=== PATIENT | female | born 2000 | race Two or more races ===

== ENCOUNTER 2024-05-28 11:01 | Observation (INO) | payer MEDICAID, SELFPAY ==
--- NOTE | 2024-05-28 11:13 | ESHP_ITS ---
RE: CHARO CANELA : 2000 DATE OF ADMISSION: 05/28/2024 HISTORY OF PRESENT ILLNESS: This is a 23-year-old 1, para 0 with a due date of 06/21/2023 with intrauterine at 36 weeks and 5 days who called the office and complained of headache and noticed her home blood pressure was 150/111 mmHg. The patient is a known preeclamptic with her most recent 24-hour urine collection on 05/26/2023 showing 671 mg of protein over 24 hours. Her care has also been complicated by a platelet count, which appears fictitiously low due to platelet clumping. She has a tension type headache. She denies any change in vision or right upper quadrant pain. She reports normal movement. She denies any leaking or bleeding. ALLERGIES: NO KNOWN DRUG ALLERGIES. MEDICATIONS: multivitamin 1 tablet p.o. daily. PAST MEDICAL HISTORY: Appendicitis, thrombocytopenia, fictitious due to platelet clumping. FAMILY HISTORY: Denies. REVIEW OF SYSTEMS: She denies any chest pain, palpitations, cough, fever, shortness of breath, or lower extremity pain. PHYSICAL EXAMINATION: VITAL SIGNS: Blood pressure 150/111 mmHg, heart rate 88, respirations 18, temperature 90.2. HEENT: Oropharynx and sclerae are clear. LUNGS: Clear to auscultation bilaterally. HEART: Regular rate and rhythm. ABDOMEN: Gravid consistent with estimated weight 6 pounds 9 ounces. EXTREMITIES: Nontender. SKIN: Equals, rashes, or lesion. NEUROLOGIC: No focal deficits. ASSESSMENT: Intrauterine at 36 weeks and 5 days. Preeclampsia rule out with severe features . PLAN: PI Labs. NST. Betamethasone. DT: 10:35:08 TT: 11:12:00 Ref: [id number] - TID: [id number] [facility]
[2024-05-28 11:37] LABS: Collection Type, Urine Clean Catch
[2024-05-28 11:46] LABS: Basophils % (Auto) 0 % (0-2.5); Eosinophils # (Auto) 0.1 Thou/mm3 (0.0-0.5); Eosinophils % (Auto) 1 % (0-10); Hematocrit 38.4 % (36.0-46.0); Hemoglobin 13.7 g/dL (12.0-16.0); Immature Granulocytes % (Auto) 1 % (0-0); Immature Granulocytes Auto 0.16 Thou/mm3 (0.00-0.00); Lymphocytes # (Auto) 2.5 Thou/mm3 (1.0-4.8); Lymphocytes % (Auto) 20 % (10-50); Mean Corpuscular HGB Conc 35.7 g/dl (31.0-37.0); Mean Corpuscular Hemoglobin 29.7 pg (25.0-35.0); Mean Corpuscular Volume 83 fL (80-100); Monocytes # (Auto) 0.8 Thou/mm3 (0.0-0.8); Monocytes % (Auto) 6 % (0-12); Neutrophils # (Auto) 8.9 Thou/mm3 (1.8-7.7); Neutrophils % (Auto) 71 % (37-80); Nucleated Red Blood Cell % 0 /100 WBC (0); RDW Standard Deviation 42.6 fL (36.4-46.3); Red Blood Count 4.61 Miln/mm3 (4.00-5.20); White Blood Count 12.4 Thou/mm3 (3.6-11.0)
[2024-05-28 11:54] VITALS: BP 130/77; PULSE 70
[2024-05-28 11:59] VITALS: BMI 36.2
[2024-05-28 12:04] LABS: Platelet Count 104 Thou/mm3 (140-440)
[2024-05-28 12:11] LABS: Alanine Aminotransferase 10 U/L (10-49); Albumin, Serum 3.7 gm/dL (3.5-5.0); Albumin/Globulin Ratio 1.5 (1.2-2.2); Alkaline Phosphatase 132 U/L (46-116); Anion Gap 9 (7-16); Aspartate Amino Transferase 15 U/L (0-34); BUN/Creatinine Ratio 15 Ratio (12-20); Bilirubin,Total 0.3 mg/dL (0.3-1.2); Blood Urea Nitrogen 9 mg/dL (9-23); Calcium (Corrected) 9.2 mg/dL (8.5-10.1); Carbon Dioxide 18.8 mMol/L (20.0-31.0); Chloride 108 mMol/L (98-107); Creatinine (Component) 0.6 mg/dL (0.6-1.3); Estimated Creatinine Clearance 168.3 mL/min (>60); Globulin 2.4 gm/dL (2.3-3.5); Glucose 72 mg/dL (74-106); LDH (Lactate Dehydrogenase) 182 U/L (120-246); Osmolality,Calculated 269 (275-295); Potassium 4.4 mMol/L (3.4-5.1); Sodium 136 mMol/L (136-145); Total Protein 6.1 gm/dL (5.7-8.2); Uric Acid 6.3 mg/dL (3.1-7.8); eGFR > 60 See Note
[2024-05-28 12:17] VITALS: BP 129/79; PULSE 67
[2024-05-28 12:27] LABS: Bacteria,Urine Rare; Bilirubin,Urine Negative (Negative); Blood,Urine Negative (Negative); Clarity,Urine Clear (Clear/Hazy); Color,Urine Lt-Yellow (Lt Yel-Yel); Glucose, Urine Negative (Negative); Ketones,Urine Negative (Negative); Leukocyte Esterase,Urine Negative (Negative); Nitrite,Urine Negative (Negative); PH,Urine 6.5 (5.0-7.0); Protein,Urine 2+ (Neg - Trace); RBC,Urine 1 /hpf (0-3); Specific Gravity,Urine 1.016 (1.001-1.035); Squamous Epithelial Cell,Urine 16 /hpf (0-5); Urobilinogen,Urine Negative mg/dL (0.0-1.0); WBC,Urine 1 /hpf (0-5)
[2024-05-28 12:32] LABS: Fibrinogen 490 mg/dL (175-375); INR 0.9 (0.9-1.3); Partial Thromboplastin Time 26.9 Seconds (22.0-36.0); Prothrombin Time 9.8 Seconds (9.0-12.2)
[2024-05-28 12:33] VITALS: BP 146/78; PULSE 63
[2024-05-28 12:47] VITALS: BP 134/81; PULSE 64
[2024-05-28 13:02] VITALS: BP 126/78; PULSE 66
[2024-05-28] MEDS: BETAMET ACET/BETAMET NA PH (Celestone) 6 MG/ML VIAL 12 MG IM (13:18)
[2024-05-28 13:38] VITALS: BP 130/77; PULSE 70; RESP 18; TEMP 37.1
== END 2024-05-28 13:20 | disposition home or self-care (01) ==
PROVIDERS: Admitting Provider Specialist; Visit Provider Specialist
DX: O16.3 Unspecified maternal hypertension, third trimester (principal); Z3A.36 36 weeks gestation of pregnancy
CPT/HCPCS: 36415; 59025; 59899; 80053; 81001; 83615; 84550; 85025; 85049; 85384; 85610; 85730; 96372; J0702

== ENCOUNTER 2024-05-29 13:44 | Outpatient (CLI) | payer MEDICAID, SELFPAY ==
[2024-05-29 13:57] VITALS: BP 133/85; PULSE 89
[2024-05-29 14:01] VITALS: BMI 36.9
[2024-05-29 14:07] VITALS: BP 133/85; PULSE 89; RESP 18; RESP 99; TEMP 36.7
[2024-05-29 14:11] VITALS: BP 122/63; PULSE 86
[2024-05-29] MEDS: BETAMET ACET/BETAMET NA PH (Celestone) 6 MG/ML VIAL 12 MG IM (14:12)
== END 2024-05-29 14:15 | disposition home or self-care (01) ==
LOC: S4S1 13:47 → S4SX 13:48
PROVIDERS: Referring Provider Specialist; Visit Provider Specialist
DX: Z36.9 Encounter for antenatal screening, unspecified (principal); Z34.03 Encounter for supervision of normal first pregnancy, third trimester; Z3A.36 36 weeks gestation of pregnancy
CPT/HCPCS: 59025; 96372; J0702

== ENCOUNTER 2024-05-31 23:01 | Inpatient (IN) | payer MEDICAID, SELFPAY ==
[2024-05-31] VITALS (9 sets, daily range): BP systolic 144–189; BP diastolic 81–116; PULSE 48–62; O2SAT 97–99
--- NOTE | 2024-05-31 23:34 | ESHP_ITS ---
Documentation for date of: 05/31/24 OB Labor/Induct. HPI History of Present Illness History of present illness: H and P dictated on STAT line #9 in [facility] [id number] Meds Home Medications and Allergies Allergies Allergy/AdvReac Type Severity Reaction Status Date / Time No Known Allergies Allergy Verified 05/31/24 23:12 OB Exam Physical Exam Vital signs: Pulse BP Pulse Ox 50 L 165/81 H 98 05/31/24 23:19 05/31/24 23:19 05/31/24 23:29
[2024-05-31] MEDS: Magnesium Sulfate 4 GM Ivpb 4 GM/50 ML BAG IV (23:50)
[2024-06-01] VITALS (128 sets, daily range): BP systolic 126–191; BP diastolic 68–109; PULSE 48–103; RESP 14–98; TEMP 36.6–36.9; O2SAT 83–100; BMI 37.3
--- NOTE | 2024-06-01 | XR_ITS ---
Examination: Complete OB ultrasound greater than 14 weeks Date and time of exam: June 01, 2024 0026 hrs. Indications: Pelvic contractions beginning today Findings: Viable intrauterine single fetus with single amniotic sac presentation cephalic Placenta anterior grade 3 Umbilical cord insertion seen Amniotic fluid index 11.6 cm Ovaries obscured by bowel gas. Composite estimated gestational age based on BPD, head circumference, abdominal circumference, femur length is 37 weeks 2 days Estimated weight 3174.9 g Moderate bilateral hydroceles. Survey of intracranial anatomy, spinal anatomy, four-chamber heart performed with no abnormalities identified. Impression: Viable intrauterine gestation cephalic presentation. Estimated gestational age 37 weeks 2 days Estimated weight 3174.9 g
[2024-06-01 00:08] LABS: Collection Type, Urine Clean Catch
[2024-06-01 00:31] LABS: Basophils # (Auto) 0.1 Thou/mm3 (0.0-0.2); Basophils % (Auto) 0 % (0-2.5); Eosinophils # (Auto) 0.1 Thou/mm3 (0.0-0.5); Eosinophils % (Auto) 0 % (0-10); Hematocrit 37.4 % (36.0-46.0); Hemoglobin 13.3 g/dL (12.0-16.0); Immature Granulocytes % (Auto) 4 % (0-0); Immature Granulocytes Auto 0.66 Thou/mm3 (0.00-0.00); Lymphocytes % (Auto) 17 % (10-50); Mean Corpuscular HGB Conc 35.6 g/dl (31.0-37.0); Mean Corpuscular Hemoglobin 29.2 pg (25.0-35.0); Mean Corpuscular Volume 82 fL (80-100); Monocytes # (Auto) 1.7 Thou/mm3 (0.0-0.8); Monocytes % (Auto) 9 % (0-12); Neutrophils # (Auto) 12.5 Thou/mm3 (1.8-7.7); Neutrophils % (Auto) 70 % (37-80); Nucleated Red Blood Cell # 0.03 Thou/mm3 (0.00-0.00); Nucleated Red Blood Cell % 0 /100 WBC (0); Platelet Count 104 Thou/mm3 (140-440); RDW Standard Deviation 41.9 fL (36.4-46.3); Red Blood Count 4.56 Miln/mm3 (4.00-5.20)
[2024-06-01] MEDS: MAGNESIUM SULF 20 GM IVPB 20 GM/500 ML BAG IV ×2 (00:34→13:22)
[2024-06-01 00:43] LABS: Alanine Aminotransferase 38 U/L (10-49); Albumin, Serum 3.7 gm/dL (3.5-5.0); Albumin/Globulin Ratio 1.7 (1.2-2.2); Alkaline Phosphatase 126 U/L (46-116); Anion Gap 8 (7-16); Aspartate Amino Transferase 53 U/L (0-34); BUN/Creatinine Ratio 22 Ratio (12-20); Bilirubin,Total 0.3 mg/dL (0.3-1.2); Blood Urea Nitrogen 13 mg/dL (9-23); Calcium 9.2 mg/dL (8.3-10.6); Calcium (Corrected) 9.4 mg/dL (8.5-10.1); Carbon Dioxide 22.3 mMol/L (20.0-31.0); Chloride 110 mMol/L (98-107); Creatinine (Component) 0.6 mg/dL (0.6-1.3); Globulin 2.2 gm/dL (2.3-3.5); Glucose 82 mg/dL (74-106); Magnesium 1.8 mg/dL (1.6-2.6); Osmolality,Calculated 278 (275-295); Potassium 3.7 mMol/L (3.4-5.1); Sodium 140 mMol/L (136-145); Total Protein 5.9 gm/dL (5.7-8.2); Uric Acid 7.1 mg/dL (3.1-7.8); eGFR > 60 See Note
[2024-06-01] MEDS: hydrALAZINE INJ 20 MG/ML VIAL (00:52)
[2024-06-01 00:53] LABS: Fibrinogen 386 mg/dL (175-375); INR 0.9 (0.9-1.3); Partial Thromboplastin Time 24.1 Seconds (22.0-36.0); Prothrombin Time 9.7 Seconds (9.0-12.2)
[2024-06-01 00:59] LABS: Bacteria,Urine Rare; Bilirubin,Urine Negative (Negative); Blood,Urine 1+ (Negative); Clarity,Urine Clear (Clear/Hazy); Color,Urine Yellow (Lt Yel-Yel); Glucose, Urine Negative (Negative); Ketones,Urine Negative (Negative); Leukocyte Esterase,Urine Negative (Negative); Nitrite,Urine Negative (Negative); Protein,Urine 3+ (Neg - Trace); RBC,Urine 6 /hpf (0-3); Specific Gravity,Urine 1.036 (1.001-1.035); Squamous Epithelial Cell,Urine 10 /hpf (0-5); Urobilinogen,Urine Negative mg/dL (0.0-1.0); WBC,Urine 15 /hpf (0-5)
[2024-06-01 01:00] LABS: Syphilis Nonreactive (Nonreactive)
--- NOTE | 2024-06-01 01:55 | PRELIM_ITS ---
Obstetric ultrasound with Doppler. June 01, 2024 at 0026 hours Clinical history: Unable to determine presentation Comparison: None. Findings: There is a gravid uterus with a live fetus in cephalic presentation of mean gestational age 37 weeks and 2 days (by biometry). cardiac activity is present at a heart rate of 120 beats per minute. The placenta is anterior in location, grade 3. There is no evidence of placenta previa or retroplacental hemorrhage. Amniotic fluid is adequate (DOMI = 11.6 cm). Estimated weight is 3175 grams+/- 470 grams. The ovaries were not visualized. Hydrocele noted in the scrotum. Normalities detected by Doppler. Impression: Gravid uterus with a single live fetus in cephalic presentation of mean gestational age 37 weeks 2 days. Hydrocele noted in the scrotum. Obstetric consult should be considered. Report Electronically Signed By: Eligio Castañeda 06/01/2024 1:55:02 AM [EST]
--- NOTE | 2024-06-01 05:21 | PD.LDPN ---
Documentation for date of: 06/01/24 OB Labor Progress Note Pain Control Comments: Epidural Pelvic Exam Dilation (cm): closed Effacement (%): long station: -3 Amniotic membrane status: Intact Contractions Contraction frequency: irregular Status status: Category l Assessment and Plan Comments: Preeclampsia with severe features Remote from delivery due to unripe cervix Delivery Informed consent obtained. The patient was made aware of the risks, complications, alternatives and benefits of the proposed procedure and she agrees.
[2024-06-01] MEDS: CITRIC ACID/SODIUM CITR 15 ML UDC (BICITRA) 30 ML PO (05:48)
[2024-06-01] MEDS: ceFAZolin/D5W 2 GM IV 2 GM/100 ML BAG IV (05:49)
[2024-06-01] MEDS: FAMOTIDINE INJ 10 MG/ML VIAL 2 ML 20 MG IV (05:49)
--- NOTE | 2024-06-01 07:38 | PD.LDDELS ---
Data (Ramachandran) Data : 1 Para: 0 Term: 0 : 0 : 0 Delivery Data (Ramachandran) Labor Data ROM Date: 06/01/24 ROM Time: 06:21 Rupture Type: AROM Delivery Data EDC: 06/21/24 EDC calculated by:: LMP/early US confirmation Labor Onset Stage 1 Date: 06/01/24 Labor Onset Stage 1 Time: 06:22 Labor Onset Stage 2 Date: 06/01/24 Labor Onset Stage 2 Time: 06:22 Delivery Date: 06/01/24 Delivery Time: 06:22 Gestational age (weeks): 37 Gestational age (days): 2 Placenta Delivery Date: 06/01/24 Placenta Delivery Time: 06:23 Delivered by: Bjorn Gomes Delivery nurse: Inder Cota Other staff at delivery: Nursery Nurse Other staff at delivery: Heather Jones Delivery Method Delivery: Delivery Type: Primary Presentation: Vertex Position: OA Anesthesia Type Primary Anesthesia: Epidural Placenta Placenta Delivery: Manual EBL Estimated blood loss (ml): 800 Additional Procedures Mity vac vacuum assisted delivery Complications Complications: None Data (Ramachandran) Data Infant Gender: Female Infant Weight Grams: 3135 1 Minute Total: 9 5 Minute Total: 9
--- NOTE | 2024-06-01 07:43 | ESDS_ITS ---
DS: Providers Provider Date of admission: 05/31/24 23:24 Primary care physician: Physician No Primary/Family Admitting Provider: Bjorn Gomes MD Attending Provider on Admission: Bjorn Gomes MD Attending Provider on DC: Bjorn Gomes MD Discharging Provider: Bjorn Gomes MD DS: Diagnosis Discharge Diagnosis (1) Preeclampsia, severe: Status: Acute (2) delivery delivered: Status: Acute (3) HELLP (hemolytic anemia/elev liver enzymes/low platelets in ): Status: Acute (4) Transfusion of platelets during current hospitalization: Status: Acute Problem List Completed Was Problem List Reviewed/Reconciled?: Yes Summary/Hosp Course Brief History: H and P dictated on STAT line #9 in [facility] [id number] Peripartum Data Procedures: Procedures Operation Date: 06/01/24 06:15 Actual Procedure Side Surgeon p in OB Not Applicable Bjorn Gomes MD Time Spent with Patient Time attestation: Total time spent providing and/or coordinating discharge services: Exam Vital Signs Temp Pulse Resp BP Pulse Ox O2 Del Method 97.9 F 86 18 157/109 H 98 Room Air 06/01/24 07:11 06/01/24 07:15 06/01/24 07:30 06/01/24 07:30 06/01/24 07:30 06/01/24 07:30 Discharge Plan Plan Patient Disposition: HOME (Self Care) Patient condition on transfer: Stable Prescriptions/Referrals Prescriptions/Med Rec: New hydrocodone-acetaminophen 5-325 mg tablet 1 tab PO Q6H MDD 4 PRN (Reason: pain) Qty: 20 0RF labetalol 200 mg tablet 200 mg PO BID Qty: 60 1RF Referrals: No Primary/Family,Physician [Primary Care Provider] - Patient/Caregiver Discharge Instructions Discharge Activity: activity as tolerated Other Discharge Activity Instructions:: Follow up office 1 week. Check BP every 12 hours and take Labetalol if systolic 140 or greater or diastolic 90 or greater. Education Materials: C Section Dc Print Language: [place] Stand Alone Forms: Sindi Award Info., Patient Portal Info Letter Discharge Order Discharge Orders: Discharge (Routine); Ordered 06/03/24 Ordered By: Bjorn Gomes Planned Discharge Date 06/03/24
[2024-06-01] MEDS: OXYTOCIN in NS 20 units 20 UNIT/1,000 ML BAG 125 UNIT IV ×2 (08:54→17:18)
[2024-06-01] MEDS: KETOROLAC INJ 30 MG/ML VIAL IVP ×3 (08:54→21:08)
--- NOTE | 2024-06-01 09:10 | ESOP_ITS ---
RE: CHARO CANELA : 2000 DATE OF OPERATION: 06/01/2024 PREOPERATIVE DIAGNOSES: 1. Intrauterine at 37 weeks and 1 day. 2. Preeclampsia with severe features; cervix is long and closed, not a candidate for prolonged induction of labor. POSTOPERATIVE DIAGNOSES: 1. Intrauterine at 37 weeks and 1 day. 2. Preeclampsia with severe features; cervix is long and closed, not a candidate for prolonged induction of labor. PROCEDURE PERFORMED: Primary low transverse section via Pfannenstiel skin incision. SURGEON: Bjorn Gomes DO SIGNAL INSPECTOR: JADEN March ANESTHESIA: Epidural. ANESTHESIOLOGIST: Gaston Renee CRNA ESTIMATED BLOOD LOSS: 800 mL COMPLICATIONS: None. COUNTS: Correct. PATHOLOGY: None. FINDINGS: A live female infant, cephalic presentation, clear amniotic fluid. Apgars 9 and 9, weight 3135 grams. Normal-appearing uterus, ovaries, and fallopian tubes. DESCRIPTION OF PROCEDURE: After proper informed consent was obtained and the patient was made aware of the risks, complications, alternatives, and benefits of the proposed procedure, she went to the operating room where epidural anesthesia was found to be adequate. She was prepped and draped in the usual sterile fashion. Timeout was performed. A Pfannenstiel skin incision was made with the scalpel carried through to the underlying layer of fascia with the Bovie. The fascia was nicked in the midline and incision extended bilaterally with the Bovie. The inferior aspect of the fascial incision was grasped with Ruth clamps and elevated. The underlying rectus muscles were dissected off with the Bovie. The rectus muscles were in the midline. The peritoneum was identified between two Camp clamps and entered sharply with the Metzenbaum scissors. The incision was extended superiorly and inferiorly with good visualization of the bladder. The bladder blade was then inserted. Vesicouterine peritoneum was incised transversely. The bladder flap was created digitally. Bladder blades were reinserted. The low uterine segment was incised in transverse fashion with a scalpel. The incision was extended bilaterally digitally. The infant's head was delivered. The mouth and nose were suctioned with bulb suction. Shoulder and body were delivered atraumatically. The cord was clamped and cut. The was sent off to the waiting pediatric staff. Cord blood and gases were sent. The placenta was then removed manually. The uterus was exteriorized and cleared of all clots and debris and the uterine incision was repaired with #1-0 chromic catgut suture in a running interlocking fashion. The second layer of the same suture was used to imbricate the first layer and obtain excellent hemostasis. The vesicouterine peritoneum was closed with 0 chromic catgut suture in a running fashion. The muscle was closed with a 0 chromic catgut suture in a running fashion. The fascia was closed with 0 Vicryl beginning at each angle and ending in the center in a running fashion. Subcutaneous tissue was irrigated with normal saline solution and found to be hemostatic, closed with 2-0 chromic catgut suture in a running fashion. The skin was closed with 4-0 Monocryl. Dermabond Prineo dressing was applied. Sterile pressure dressing was applied. She tolerated the procedure well. All counts were correct. I discussed with the patient, the nature of her condition, the intraoperative findings, and expectations for recovery. All questions were answered. DT: 07:41:41 TT: 09:08:00 Ref: [id number] - TID: [id number]
[2024-06-01] MEDS: ACETAMINOPHEN IVPB 1,000 MG/100 ML VIAL 250 MG IV ×2 (09:21→15:55)
--- NOTE | 2024-06-01 09:28 | ESHP_ITS ---
RE: CHARO CANELA : 2000 DATE OF ADMISSION: 05/31/2024 HISTORY OF PRESENT ILLNESS: This is a 23-year-old 1 para 0 with due date of 06/20/2024 with intrauterine at 37 weeks and 1 day, who presents to labor and delivery complaining of contractions. The patient has a diagnosis of preeclampsia with her 24-hour urine collection on 05/26/2024 showing 671 mg of protein over 24 hours. Her care has also been complicated by gestational thrombocytopenia with platelet count that has been ranging in the low 100,000 range. She denies headache. She denies any changes in her vision or right upper quadrant pain. She reports normal movement. She denies any leaking or bleeding. ALLERGIES: NO KNOWN DRUG ALLERGIES. MEDICATIONS: multivitamin 1 p.o. daily. PAST MEDICAL HISTORY: Appendicitis and gestational thrombocytopenia. FAMILY HISTORY: Denies. REVIEW OF SYSTEMS: She denies any chest pain, palpitations, cough, fever, shortness of breath or lower extremity pain. SOCIAL HISTORY: She denies any alcohol or drug use or smoking. PHYSICAL EXAMINATION: VITALS SIGNS: Blood pressure is 178/102, 189/116, and 165/81, heart rate is 50, respirations 18, temperature 98.2, and pulse oximetry is 98% on room air. HEENT: Oropharynx and sclerae are clear. LUNGS: Clear to auscultation bilaterally. HEART: Regular rate and rhythm. ABDOMEN: Gravid, term size consistent with estimated weight 7 pounds. PELVIC: See RN notes. EXTREMITIES: Nontender. SKIN: No gross rash or lesion. NEUROLOGIC: No focal deficits. ASSESSMENT AND PLAN: Intrauterine at 37 weeks and 1 day, preeclampsia with severe features, early labor. Anticipate spontaneous vaginal delivery. Plan is magnesium sulfate for seizure chemoprophylaxis and hydralazine for blood pressure control. I discussed with patient the nature of her condition and the recommended treatment plan and all questions answered. She is aware of the risk of operative vaginal delivery and delivery and agrees with these modes of delivery if indicated. DT: 23:33:45 TT: 00:10:00 Ref: [id number] - TID: [id number] [facility]
[2024-06-01 10:57] LABS: Magnesium 4.1 mg/dL (1.6-2.6)
[2024-06-01 15:52] LABS: Magnesium 4.2 mg/dL (1.6-2.6)
[2024-06-01 15:54] LABS: Basophils % (Auto) 0 % (0-2.5); Eosinophils % (Auto) 0 % (0-10); Hematocrit 32.3 % (36.0-46.0); Hemoglobin 11.7 g/dL (12.0-16.0); Immature Granulocytes % (Auto) 2 % (0-0); Immature Granulocytes Auto 0.27 Thou/mm3 (0.00-0.00); Lymphocytes # (Auto) 1.6 Thou/mm3 (1.0-4.8); Lymphocytes % (Auto) 12 % (10-50); Mean Corpuscular HGB Conc 36.2 g/dl (31.0-37.0); Mean Corpuscular Hemoglobin 29.3 pg (25.0-35.0); Mean Corpuscular Volume 81 fL (80-100); Monocytes # (Auto) 0.9 Thou/mm3 (0.0-0.8); Monocytes % (Auto) 7 % (0-12); Neutrophils # (Auto) 10.1 Thou/mm3 (1.8-7.7); Neutrophils % (Auto) 79 % (37-80); Nucleated Red Blood Cell # 0.03 Thou/mm3 (0.00-0.00); Nucleated Red Blood Cell % 0 /100 WBC (0); RDW Standard Deviation 42.5 fL (36.4-46.3); Red Blood Count 3.99 Miln/mm3 (4.00-5.20); White Blood Count 12.8 Thou/mm3 (3.6-11.0)
[2024-06-01 16:22] LABS: Platelet Count 40 Thou/mm3 (140-440)
[2024-06-01 16:23] LABS: Slide Review Platelets confirmed
--- NOTE | 2024-06-01 16:27 | PC.NURSE ---
Call received from blood bank x [phone] , cbc ran on blue top. new result 40. Will call
[2024-06-01 21:09] LABS: Basophils % (Auto) 0 % (0-2.5); Eosinophils % (Auto) 0 % (0-10); Hematocrit 32.5 % (36.0-46.0); Hemoglobin 11.8 g/dL (12.0-16.0); Immature Granulocytes % (Auto) 3 % (0-0); Immature Granulocytes Auto 0.31 Thou/mm3 (0.00-0.00); Lymphocytes # (Auto) 1.8 Thou/mm3 (1.0-4.8); Lymphocytes % (Auto) 14 % (10-50); Mean Corpuscular HGB Conc 36.3 g/dl (31.0-37.0); Mean Corpuscular Hemoglobin 29.9 pg (25.0-35.0); Mean Corpuscular Volume 82 fL (80-100); Monocytes # (Auto) 0.9 Thou/mm3 (0.0-0.8); Monocytes % (Auto) 7 % (0-12); Neutrophils # (Auto) 9.5 Thou/mm3 (1.8-7.7); Neutrophils % (Auto) 76 % (37-80); Nucleated Red Blood Cell # 0.02 Thou/mm3 (0.00-0.00); Nucleated Red Blood Cell % 0 /100 WBC (0); RDW Standard Deviation 44.1 fL (36.4-46.3); Red Blood Count 3.95 Miln/mm3 (4.00-5.20); White Blood Count 12.5 Thou/mm3 (3.6-11.0)
[2024-06-01 21:15] LABS: Platelet Count 31 Thou/mm3 (140-440)
[2024-06-01 21:16] LABS: Slide Review Platelets confirmed
[2024-06-01 21:25] LABS: Alanine Aminotransferase 147 U/L (10-49); Albumin, Serum 3.1 gm/dL (3.5-5.0); Albumin/Globulin Ratio 1.4 (1.2-2.2); Alkaline Phosphatase 99 U/L (46-116); Anion Gap 8 (7-16); Aspartate Amino Transferase 148 U/L (0-34); BUN/Creatinine Ratio 13 Ratio (12-20); Bilirubin,Total 0.6 mg/dL (0.3-1.2); Blood Urea Nitrogen 9 mg/dL (9-23); Calcium 7.2 mg/dL (8.3-10.6); Calcium (Corrected) 7.9 mg/dL (8.5-10.1); Carbon Dioxide 22.2 mMol/L (20.0-31.0); Chloride 112 mMol/L (98-107); Creatinine (Component) 0.7 mg/dL (0.6-1.3); Estimated Creatinine Clearance 146.4 mL/min (>60); Globulin 2.2 gm/dL (2.3-3.5); Glucose 124 mg/dL (74-106); Magnesium 4.2 mg/dL (1.6-2.6); Osmolality,Calculated 282 (275-295); Potassium 3.8 mMol/L (3.4-5.1); Sodium 142 mMol/L (136-145); Total Protein 5.3 gm/dL (5.7-8.2); eGFR > 60 See Note
--- NOTE | 2024-06-01 21:52 | PC.NURSE ---
Received call from Dr. Gomes to transfuse platelets once platelets arrive.
[2024-06-01 22:04] LABS: Fibrinogen 421 mg/dL (175-375); INR 0.9 (0.9-1.3); Partial Thromboplastin Time 29.5 Seconds (22.0-36.0); Prothrombin Time 9.7 Seconds (9.0-12.2)
--- NOTE | 2024-06-01 22:20 | PC.NURSE ---
2158: Hany FRASER from lab called to , requesting to speak to cnc wood lathe operator, call transferrred to cnc wood lathe operator. Hany FRASER reports he contacted [facility] for the Platelet Pheresis, ETA: 2hours. Primary nurse made aware of ETA.
[2024-06-01 23:31] LABS: Platelet Count 40 Thou/mm3 (140-440)
--- NOTE | 2024-06-01 23:41 | PC.NURSE ---
[address] Gomes of plt 40, AST 148, ALT 147. No new orders.
[2024-06-02] VITALS (33 sets, daily range): BP systolic 105–179; BP diastolic 69–109; PULSE 69–103; RESP 17–22; TEMP 2.6–37.2; O2SAT 94–98
[2024-06-02 00:36] LABS: Slide Review Platelets confirmed
[2024-06-02] MEDS: MAGNESIUM SULF 20 GM IVPB 20 GM/500 ML BAG IV (02:02)
[2024-06-02] MEDS: RINGERS LACTATED 1000 ML 1,000 ML 100 ML IV (02:02)
[2024-06-02] MEDS: ACETAMINOPHEN 325 MG TABLET 650 MG PO ×2 (02:09→10:27)
[2024-06-02 03:57] LABS: Magnesium 4.7 mg/dL (1.6-2.6)
--- NOTE | 2024-06-02 04:05 | PC.NURSE ---
0259 Called blood bank to check on the status of second unit of platelets. They were unable to give estimated time.
--- NOTE | 2024-06-02 05:51 | PC.NURSE ---
0550 Called Blood bank to check on the status of the second unit of platelets, no estimated time was given due to them being very busy.
[2024-06-02] MEDS: KETOROLAC INJ 30 MG/ML VIAL IVP (07:26)
[2024-06-02] MEDS: Milk Of Magnesia Susp 30 ML UDC PO (07:44)
[2024-06-02] MEDS: SIMETHICONE 80 MG CHEW PO (07:44)
[2024-06-02 10:24] LABS: Basophils % (Auto) 0 % (0-2.5); Eosinophils % (Auto) 0 % (0-10); Hematocrit 30.3 % (36.0-46.0); Hemoglobin 10.7 g/dL (12.0-16.0); Immature Granulocytes % (Auto) 3 % (0-0); Immature Granulocytes Auto 0.35 Thou/mm3 (0.00-0.00); Lymphocytes % (Auto) 16 % (10-50); Mean Corpuscular HGB Conc 35.3 g/dl (31.0-37.0); Mean Corpuscular Hemoglobin 29.2 pg (25.0-35.0); Mean Corpuscular Volume 83 fL (80-100); Monocytes # (Auto) 0.6 Thou/mm3 (0.0-0.8); Monocytes % (Auto) 5 % (0-12); Neutrophils % (Auto) 76 % (37-80); Nucleated Red Blood Cell # 0.03 Thou/mm3 (0.00-0.00); Nucleated Red Blood Cell % 0 /100 WBC (0); RDW Standard Deviation 43.9 fL (36.4-46.3); Red Blood Count 3.67 Miln/mm3 (4.00-5.20); White Blood Count 13.1 Thou/mm3 (3.6-11.0)
[2024-06-02 10:36] LABS: Alanine Aminotransferase 100 U/L (10-49); Albumin, Serum 3.1 gm/dL (3.5-5.0); Albumin/Globulin Ratio 1.5 (1.2-2.2); Alkaline Phosphatase 98 U/L (46-116); Anion Gap 10 (7-16); Aspartate Amino Transferase 62 U/L (0-34); BUN/Creatinine Ratio 11 Ratio (12-20); Bilirubin,Total 0.5 mg/dL (0.3-1.2); Blood Urea Nitrogen 8 mg/dL (9-23); Calcium 6.9 mg/dL (8.3-10.6); Calcium (Corrected) 7.6 mg/dL (8.5-10.1); Carbon Dioxide 21.8 mMol/L (20.0-31.0); Chloride 110 mMol/L (98-107); Creatinine (Component) 0.7 mg/dL (0.6-1.3); Estimated Creatinine Clearance 146.4 mL/min (>60); Globulin 2.1 gm/dL (2.3-3.5); Glucose 133 mg/dL (74-106); Osmolality,Calculated 283 (275-295); Potassium 3.3 mMol/L (3.4-5.1); Sodium 142 mMol/L (136-145); Total Protein 5.2 gm/dL (5.7-8.2); eGFR > 60 See Note
[2024-06-02 11:08] LABS: Platelet Count 42 Thou/mm3 (140-440)
[2024-06-02 11:14] LABS: Slide Review Platelets confirmed
--- NOTE | 2024-06-02 11:19 | ESPR_ITS ---
RE: CHARO CANELA : 2000 DATE OF SERVICE: 06/02/2024 S: Postop day #1, the patient denies any problem or complaints. She has got adequate urine output with Fitzpatrick catheter in place. She denies any excessive vaginal bleeding. She denies any dizziness or lightheadedness. She denies any chest pain, palpitations, shortness of breath or lower extremity pain. She denies any nausea or vomiting. O: Vitals Signs: Blood pressure 139/86, heart rate 75, respirations 20, temperature 90.4, pulse ox is 97% on room air. Lungs: Clear to auscultation bilaterally. Heart: Regular rate and rhythm. Abdomen: Fundus is firm. Dressing is dry and intact. LABORATORY DATA: Hemoglobin pre-delivery is 13.3, post delivery is 11.8. Platelet count went from 104,000 down to 31,000. PT/PTT, fibrinogen within normal limits. Creatinine within normal limits. Liver function tests, AST 148, ALT 147. ASSESSMENT: Postop day #1, status post delivery for preeclampsia with severe features, HELLP syndrome. P: Platelet transfusion to keep platelet count above 50,000. Monitor liver function test and creatinine. Discontinue magnesium sulfate. Out of bed only with assistance. Seizure precautions in bed. I discussed with the patient the nature of her condition and management plan. All questions answered. DT: 09:27:23 TT: 10:10:00 Ref: [id number] - TID: [id number]
[2024-06-02 12:10] LABS: Fibrinogen 563 mg/dL (175-375); INR 0.9 (0.9-1.3); Partial Thromboplastin Time 31.3 Seconds (22.0-36.0); Prothrombin Time 9.7 Seconds (9.0-12.2)
[2024-06-02] MEDS: IBUPROFEN TAB 400 MG TABLET 800 MG PO (13:12)
[2024-06-02] MEDS: POTASSIUM CHLORIDE 20 mEq TABCR PO (13:13)
[2024-06-02] MEDS: CALCIUM CARBONATE 600 MG TABLET PO ×2 (13:13→21:13)
[2024-06-02] MEDS: LABETALOL 100 MG TABLET 200 MG PO ×2 (14:00→21:13)
[2024-06-02 20:04] LABS: Basophils % (Auto) 0 % (0-2.5); Eosinophils # (Auto) 0.1 Thou/mm3 (0.0-0.5); Eosinophils % (Auto) 1 % (0-10); Hematocrit 28.7 % (36.0-46.0); Immature Granulocytes % (Auto) 2 % (0-0); Lymphocytes % (Auto) 16 % (10-50); Mean Corpuscular HGB Conc 34.8 g/dl (31.0-37.0); Mean Corpuscular Hemoglobin 29.3 pg (25.0-35.0); Mean Corpuscular Volume 84 fL (80-100); Monocytes # (Auto) 0.7 Thou/mm3 (0.0-0.8); Monocytes % (Auto) 5 % (0-12); Neutrophils # (Auto) 9.7 Thou/mm3 (1.8-7.7); Neutrophils % (Auto) 76 % (37-80); Nucleated Red Blood Cell # 0.02 Thou/mm3 (0.00-0.00); Nucleated Red Blood Cell % 0 /100 WBC (0); RDW Standard Deviation 46.2 fL (36.4-46.3); Red Blood Count 3.41 Miln/mm3 (4.00-5.20); White Blood Count 12.7 Thou/mm3 (3.6-11.0)
[2024-06-02 20:06] LABS: Platelet Count 67 Thou/mm3 (140-440)
[2024-06-02 20:07] LABS: Slide Review Platelets confirmed
[2024-06-02 20:22] LABS: INR 0.9 (0.9-1.3); Partial Thromboplastin Time 29.5 Seconds (22.0-36.0); Prothrombin Time 9.7 Seconds (9.0-12.2)
[2024-06-02 20:28] LABS: Fibrinogen 633 mg/dL (175-375)
[2024-06-02 20:34] LABS: Alanine Aminotransferase 79 U/L (10-49); Albumin, Serum 3.2 gm/dL (3.5-5.0); Albumin/Globulin Ratio 1.5 (1.2-2.2); Alkaline Phosphatase 83 U/L (46-116); Anion Gap 8 (7-16); Aspartate Amino Transferase 40 U/L (0-34); BUN/Creatinine Ratio 12 Ratio (12-20); Bilirubin,Total 0.2 mg/dL (0.3-1.2); Blood Urea Nitrogen 7 mg/dL (9-23); Calcium 8.1 mg/dL (8.3-10.6); Calcium (Corrected) 8.7 mg/dL (8.5-10.1); Carbon Dioxide 22.5 mMol/L (20.0-31.0); Chloride 113 mMol/L (98-107); Creatinine (Component) 0.6 mg/dL (0.6-1.3); Estimated Creatinine Clearance 170.8 mL/min (>60); Globulin 2.2 gm/dL (2.3-3.5); Glucose 126 mg/dL (74-106); Osmolality,Calculated 284 (275-295); Potassium 3.9 mMol/L (3.4-5.1); Sodium 143 mMol/L (136-145); Total Protein 5.4 gm/dL (5.7-8.2); eGFR > 60 See Note
--- NOTE | 2024-06-02 21:22 | PC.NURSE ---
[address] Gomes on current plt count results of 67 and fibrinogen level of 633, Dr Gomes verbalized understanding. No new orders at this time.
[2024-06-02 22:20] LABS: Uric Acid 6.4 mg/dL (3.1-7.8)
[2024-06-03 00:25] VITALS: BP 130/78; PULSE 87; RESP 19; TEMP 37; O2SAT 97
[2024-06-03 03:50] VITALS: BP 122/77; PULSE 85; RESP 17; TEMP 36.8; O2SAT 97
[2024-06-03 06:06] LABS: Basophils % (Auto) 0 % (0-2.5); Eosinophils # (Auto) 0.1 Thou/mm3 (0.0-0.5); Eosinophils % (Auto) 1 % (0-10); Hematocrit 26.8 % (36.0-46.0); Hemoglobin 9.3 g/dL (12.0-16.0); Immature Granulocytes % (Auto) 3 % (0-0); Immature Granulocytes Auto 0.37 Thou/mm3 (0.00-0.00); Lymphocytes # (Auto) 2.6 Thou/mm3 (1.0-4.8); Lymphocytes % (Auto) 18 % (10-50); Mean Corpuscular HGB Conc 34.7 g/dl (31.0-37.0); Mean Corpuscular Hemoglobin 29.8 pg (25.0-35.0); Mean Corpuscular Volume 86 fL (80-100); Monocytes # (Auto) 0.8 Thou/mm3 (0.0-0.8); Monocytes % (Auto) 6 % (0-12); Neutrophils # (Auto) 10.1 Thou/mm3 (1.8-7.7); Neutrophils % (Auto) 72 % (37-80); Nucleated Red Blood Cell % 0 /100 WBC (0); RDW Standard Deviation 47.7 fL (36.4-46.3); Red Blood Count 3.12 Miln/mm3 (4.00-5.20); White Blood Count 13.9 Thou/mm3 (3.6-11.0)
[2024-06-03 06:13] LABS: Platelet Count 68 Thou/mm3 (140-440)
[2024-06-03 06:14] LABS: Slide Review Platelets confirmed
[2024-06-03 06:29] LABS: Fibrinogen 553 mg/dL (175-375); INR 0.9 (0.9-1.3); Partial Thromboplastin Time 30.2 Seconds (22.0-36.0); Prothrombin Time 9.8 Seconds (9.0-12.2)
[2024-06-03 06:41] LABS: Alanine Aminotransferase 62 U/L (10-49); Albumin/Globulin Ratio 1.4 (1.2-2.2); Alkaline Phosphatase 83 U/L (46-116); Anion Gap 10 (7-16); Aspartate Amino Transferase 20 U/L (0-34); BUN/Creatinine Ratio 12 Ratio (12-20); Bilirubin,Total 0.2 mg/dL (0.3-1.2); Blood Urea Nitrogen 7 mg/dL (9-23); Calcium 8.2 mg/dL (8.3-10.6); Carbon Dioxide 21.9 mMol/L (20.0-31.0); Chloride 109 mMol/L (98-107); Creatinine (Component) 0.6 mg/dL (0.6-1.3); Estimated Creatinine Clearance 170.8 mL/min (>60); Globulin 2.1 gm/dL (2.3-3.5); Glucose 103 mg/dL (74-106); Osmolality,Calculated 279 (275-295); Potassium 3.9 mMol/L (3.4-5.1); Sodium 141 mMol/L (136-145); Total Protein 5.1 gm/dL (5.7-8.2); eGFR > 60 See Note
[2024-06-03 08:20] VITALS: BP 129/87; PULSE 83; RESP 18; TEMP 36.9; O2SAT 99
[2024-06-03 08:29] VITALS: BP 129/87; PULSE 83
[2024-06-03] MEDS: POTASSIUM CHLORIDE 20 mEq TABCR PO (08:29)
[2024-06-03] MEDS: CALCIUM CARBONATE 600 MG TABLET PO (08:29)
[2024-06-03] MEDS: LABETALOL 100 MG TABLET 200 MG PO (08:29)
--- NOTE | 2024-06-03 09:58 | ESPR_ITS ---
RE: CHARO CANELA : 2000 DATE OF SERVICE: 06/03/2024 S: Postoperative day #2, the patient denies any problem or complaints. She is voiding. She is ambulating. She tolerated diet. She is passing flatus. She denies any excessive vaginal bleeding. She denies any dizziness or lightheadedness. She denies any chest pain, palpitations, shortness of breath or lower extremity pain. She denies any headache, change in vision or right upper quadrant pain. O: Vital Signs: Blood pressure 129/87, heart rate 85, respirations 17, temperature 98.3, and pulse oximetry 97% on room air. Lungs: Clear to auscultation bilaterally. Heart: Regular rate and rhythm. Abdomen: Incision clear and intact. Extremities: Nontender. Skin: No gross rashes or lesions. Neurological: No focal deficits. Laboratory Data: Platelet count is stable at 68,000. Liver function tests normalizing. Creatinine 0.6. PT/PTT, fibrinogen within normal range. Hemoglobin is stable at 9.3. A: 1. Postoperative day #2, status post delivery complicated by preeclampsia with severe features. 2. HELLP syndrome, status post transfusion 2 units of apheresis platelets. P: 1. Discharge home with labetalol for blood pressure control. 2. Follow up in the office in one week. 3. Discharge instructions given. DT: 08:41:00 TT: 09:56:00 Ref: [id number] - TID: [id number]
== END 2024-06-03 13:40 | disposition home or self-care (01) | DRG 540 ==
LOC: S4SX 06-01 06:11 → S4NX 06-01 06:24
PROVIDERS: Admitting Provider Specialist; Visit Provider Specialist
PROC: 10D00Z1 Extraction of Products of Conception, Low, Open Approach (ICD-10-PCS; CPT 59514; principal; 2024-06-01 06:00)
DX: O14.14 Severe pre-eclampsia complicating childbirth (principal); Z3A.37 37 weeks gestation of pregnancy; Z37.0 Single live birth; O99.12 Other diseases of the blood and blood-forming organs and certain disorders involving the immune mechanism complicating childbirth; D69.59 Other secondary thrombocytopenia; D58.9 Hereditary hemolytic anemia, unspecified
CPT/HCPCS: 36415; 59409; 76805; 80053; 81001; 83735; 84550; 85025; 85049; 85384; 85610; 85730; 86780; 86850; 86900; 86901; 86965; 94762; J0131; J0360; J0689; J1885; J2590; J2795; J3010; J3475; J3490; J7120; P9035; A9270